=== PATIENT | female | born 1990 | race Caucasian/White ===

== ENCOUNTER 2019-03-12 16:34 | Emergency (ER) | payer OTHER, MEDICAID ==
[~2019-03-12] VITALS: Ht 167.6 cm; Wt 80.7 kg
[~2019-03-12 16:34] MED LIST: CIPRO500 MG PO; CIPROFLOXACIN500 M3 PO; HYDROCODONE-AP1 EAC6 PO; IBUPROFEN 800800 M1 PO; NAPROSYN500 MG PO; PHENAZOPYRIDIN200 M2 PO; ROBAXIN 750 MG750 MG PO; XANAX2 MG PO
[2019-03-12] MEDS ORDERED: VIBRAMYCIN 100100 M2 PO (17:33)
[2019-03-12] MEDS ORDERED: BACTRIM DS TAB1 EACH PO (17:41)
[2019-03-12 17:47] VITALS: BP 147/94
[2019-03-12 17:55] LABS: URINE BILIRUBIN NEGATIVE (Negative); URINE BLOOD TRACE (Negative); URINE CLARITY CLEAR; URINE COLOR YELLOW; URINE GLUCOSE-RANDOM NEGATIVE (Negative); URINE KETONES NEGATIVE (Negative); URINE NITRITE-REFLEX NEGATIVE (Negative); URINE PROTEIN 1+ (Negative); URINE SPECIFIC GRAVITY 1.025 (1.005-1.030); URINE UROBILINOGEN 0.2 E.U./dl (0.2-1.0)
[2019-03-12 17:58] LABS: URINE LEUKOCYTES-REFLEX 2+ (Negative)
[2019-03-12 18:10] LABS: SQUAMOUS 0-3 Few /LPF (0-3)
[2019-03-12 18:11] LABS: CASTS None Seen /LPF (None Seen); CRYSTALS None Seen /LPF (None Seen); MUCUS 4-6 Moderate strn/LPF (None Seen); URINE RBC 0-2 Rare /HPF (0-2); URINE WBC-REFLEX 6-15 Few /HPF (0-5)
== END 2019-03-12 17:48 | disposition home or self-care (01) ==
LOC: M.ERS 16:34
PROVIDERS: Physician Assistant
DX: N39.0 Urinary tract infection, site not specified (principal); Z20.2 Contact with and (suspected) exposure to infections with a predominantly sexual mode of transmission; N89.8 Other specified noninflammatory disorders of vagina

== ENCOUNTER 2019-08-21 16:36 | Emergency (ER) | payer OTHER, MEDICAID ==
[~2019-08-21] VITALS: Ht 167.6 cm; Wt 81.7 kg
[~2019-08-21 16:36] MED LIST changes: +BACTRIM DS TAB1 EACH PO; +VIBRAMYCIN 100100 M2 PO
[2019-08-21 17:01] LABS: URINE BILIRUBIN NEGATIVE (Negative); URINE BLOOD NEGATIVE (Negative); URINE CLARITY CLEAR; URINE COLOR YELLOW; URINE GLUCOSE-RANDOM NEGATIVE (Negative); URINE KETONES NEGATIVE (Negative); URINE LEUKOCYTES-REFLEX TRACE (Negative); URINE NITRITE-REFLEX NEGATIVE (Negative); URINE PROTEIN NEGATIVE (Negative); URINE SPECIFIC GRAVITY 1.015 (1.005-1.030); URINE UROBILINOGEN 0.2 E.U./dl (0.2-1.0)
[2019-08-21 17:12] LABS: HYALINE CASTS 0-3 Few /LPF (None Seen)
[2019-08-21 17:13] LABS: SQUAMOUS >10 Many /LPF (0-3)
[2019-08-21 17:14] LABS: CRYSTALS None Seen /LPF (None Seen); MUCUS None Seen strn/LPF (None Seen); URINE RBC None Seen /HPF (0-2); URINE WBC-REFLEX 0-5 Rare /HPF (0-5)
[2019-08-21 18:04] VITALS: BP 145/66
== END 2019-08-21 18:05 | disposition home or self-care (01) ==
LOC: M.ERS 16:36
PROVIDERS: Nurse Practitioner Family
DX: N72 Inflammatory disease of cervix uteri (principal); Z20.2 Contact with and (suspected) exposure to infections with a predominantly sexual mode of transmission; Z98.51 Tubal ligation status

== ENCOUNTER 2019-08-23 14:48 | Emergency (ER) | payer OTHER, MEDICAID ==
[~2019-08-23] VITALS: Ht 167.6 cm; Wt 79.4 kg
[2019-08-23] MEDS ORDERED: GENTAK5 ML INTRAOCULR (15:36)
[2019-08-23 16:06] VITALS: BP 155/98
== END 2019-08-23 16:07 | disposition home or self-care (01) ==
LOC: M.ERS 14:48
DX: H10.9 Unspecified conjunctivitis (principal); F17.210 Nicotine dependence, cigarettes, uncomplicated; Z98.51 Tubal ligation status

== ENCOUNTER 2019-11-20 11:14 | Emergency (ER) | payer OTHER, MEDICAID ==
[~2019-11-20] VITALS: Ht 167.6 cm; Wt 86.2 kg
[~2019-11-20 11:14] MED LIST changes: +GENTAK5 ML INTRAOCULR
[2019-11-20 12:16] LABS: URINE BILIRUBIN NEGATIVE (Negative); URINE BLOOD 3+ (Negative); URINE CLARITY CLEAR; URINE COLOR YELLOW; URINE GLUCOSE-RANDOM NEGATIVE (Negative); URINE KETONES NEGATIVE (Negative); URINE LEUKOCYTES-REFLEX 1+ (Negative); URINE NITRITE-REFLEX NEGATIVE (Negative); URINE PROTEIN NEGATIVE (Negative); URINE UROBILINOGEN 0.2 E.U./dl (0.2-1.0)
[2019-11-20 12:28] VITALS: BP 149/83
[2019-11-20 12:37] LABS: BACTERIA-REFLEX 1-9 Few /HPF (None Seen); CASTS None Seen /LPF (None Seen); SQUAMOUS 0-3 Few /LPF (0-3); URINE RBC 0-2 Rare /HPF (0-2); URINE WBC-REFLEX 0-5 Rare /HPF (0-5)
[2019-11-20 12:52] LABS: CRYSTALS None Seen /LPF (None Seen)
== END 2019-11-20 12:29 | disposition home or self-care (01) ==
LOC: M.ERS 11:14
PROVIDERS: Physician Assistant
DX: N89.8 Other specified noninflammatory disorders of vagina (principal); Z20.2 Contact with and (suspected) exposure to infections with a predominantly sexual mode of transmission

== ENCOUNTER 2019-12-13 20:23 | Emergency (ER) | payer OTHER, MEDICAID | END 2019-12-13 20:47 | disposition left against medical advice (07) | LOC: M.ERS 20:23 | DX: Z53.21 Procedure and treatment not carried out due to patient leaving prior to being seen by health care provider (principal) ==

== ENCOUNTER 2019-12-15 17:23 | Emergency (ER) | payer OTHER, MEDICAID ==
[~2019-12-15] VITALS: Ht 170.2 cm; Wt 90.7 kg
[2019-12-15 17:39] LABS: URINE BILIRUBIN NEGATIVE (Negative); URINE BLOOD NEGATIVE (Negative); URINE CLARITY SL CLOUDY; URINE COLOR YELLOW; URINE GLUCOSE-RANDOM NEGATIVE (Negative); URINE KETONES NEGATIVE (Negative); URINE LEUKOCYTES-REFLEX TRACE (Negative); URINE NITRITE-REFLEX NEGATIVE (Negative); URINE PROTEIN NEGATIVE (Negative); URINE SPECIFIC GRAVITY >= 1.030 (1.005-1.030); URINE UROBILINOGEN 0.2 E.U./dl (0.2-1.0)
[2019-12-15 17:51] LABS: CASTS None Seen /LPF (None Seen); MUCUS >6 Heavy strn/LPF (None Seen); SQUAMOUS 4-10 Moderate /LPF (0-3); URINE RBC 0-2 Rare /HPF (0-2); URINE WBC-REFLEX 6-15 Few /HPF (0-5)
[2019-12-15 17:52] LABS: CALCIUM OXALATE 0-3 Few /LPF (None Seen)
[2019-12-15 18:15] VITALS: BP 155/87
== END 2019-12-15 18:17 | disposition home or self-care (01) ==
LOC: M.ERS 17:23
PROVIDERS: Nurse Practitioner Family
DX: N89.8 Other specified noninflammatory disorders of vagina (principal); Z98.51 Tubal ligation status

== ENCOUNTER 2020-04-24 17:12 | Emergency (ER) | payer OTHER, MEDICAID ==
[~2020-04-24] VITALS: Ht 172.7 cm; Wt 90.7 kg
[~2020-04-24 17:12] MED LIST changes: +DOXYCYCLINE 10100 M2 PO; +NORCO 5-325 TA1 EAC2 PO
[2020-04-24] MEDS ORDERED: IBUPROFEN 600600 M1 PO (19:44)
[2020-04-24] MEDS ORDERED: NORCO 5-325 TA1 EAC2 PO (19:44)
[2020-04-24] MEDS ORDERED: KEFLEX500 M1 PO (19:44)
[2020-04-24] MEDS ORDERED: CENTANY30 GM TOP (19:55)
[2020-04-24 20:05] VITALS: BP 135/76
== END 2020-04-24 20:05 | disposition home or self-care (01) ==
LOC: M.ERS 17:12
DX: S81.002A Unspecified open wound, left knee, initial encounter (principal); L08.9 Local infection of the skin and subcutaneous tissue, unspecified; Z98.51 Tubal ligation status; X58.XXXA Exposure to other specified factors, initial encounter; Y93.89 Activity, other specified; Y92.89 Other specified places as the place of occurrence of the external cause; Y99.8 Other external cause status

== ENCOUNTER 2020-07-31 20:39 | Emergency (ER) | payer OTHER, MEDICAID ==
[~2020-07-31] VITALS: Ht 165.1 cm; Wt 90.7 kg
[~2020-07-31 20:39] MED LIST changes: +CENTANY30 GM TOP; +IBUPROFEN 600600 M1 PO; +KEFLEX500 M1 PO
[2020-07-31] MEDS ORDERED: PENICILLIN V P500 MG PO (21:26)
[2020-07-31] MEDS ORDERED: HYDROCODON-ACE1 EAC7 PO (21:26)
[2020-07-31] MEDS ORDERED: PERIDEX 0.12%473 M1 SWISH&SPIT (21:26)
[2020-07-31] MEDS ORDERED: IBUPROFEN 800800 MG PO (21:26)
[2020-07-31 22:15] VITALS: BP 125/72
== END 2020-07-31 22:16 | disposition home or self-care (01) ==
LOC: M.ERS 20:39
DX: A69.1 Other Vincent's infections (principal)

== ENCOUNTER 2020-10-21 20:06 | Emergency (ER) | payer OTHER, MEDICAID ==
[~2020-10-21] VITALS: Ht 165.1 cm; Wt 90.7 kg
[~2020-10-21 20:06] MED LIST changes: +HYDROCODON-ACE1 EAC7 PO; +IBUPROFEN 800800 MG PO; +PENICILLIN V P500 MG PO; +PERIDEX 0.12%473 M1 SWISH&SPIT
[2020-10-21 20:16] VITALS: BP 159/83
[2020-10-21] MEDS ORDERED: PENICILLIN VK250 MG PO (20:32)
[2020-10-21] MEDS ORDERED: TRAMADOL 50 MG50 MG PO (20:32)
== END 2020-10-21 20:45 | disposition home or self-care (01) ==
LOC: M.ERS 20:06
DX: K04.7 Periapical abscess without sinus (principal); K02.9 Dental caries, unspecified; Z98.51 Tubal ligation status